=== PATIENT | male | born 1985 | race African-American/Black ===

== ENCOUNTER 2019-07-11 15:03 | Emergency (ER) | payer MEDICAID ==
[~2019-07-11] VITALS: Ht 172.7 cm; Wt 85.3 kg
[2019-07-11 15:08] VITALS: Ht 172.7 cm; Wt 85.3 kg
[2019-07-11 18:29] VITALS: BP 150/87
== END 2019-07-11 18:30 | disposition home or self-care (01) ==
LOC: ED 15:03
DX: S00.86XA Insect bite (nonvenomous) of other part of head, initial encounter (principal); S00.261A Insect bite (nonvenomous) of right eyelid and periocular area, initial encounter; L08.9 Local infection of the skin and subcutaneous tissue, unspecified; I10 Essential (primary) hypertension; W57.XXXA Bitten or stung by nonvenomous insect and other nonvenomous arthropods, initial encounter; Y93.89 Activity, other specified; Y92.89 Other specified places as the place of occurrence of the external cause; Y99.8 Other external cause status

== ENCOUNTER 2019-09-29 02:27 | Emergency (ER) | payer OTHER, MEDICAID ==
[~2019-09-29] VITALS: Ht 172.7 cm; Wt 83.9 kg
[2019-09-29 02:37] VITALS: Ht 172.7 cm; Wt 83.9 kg
[2019-09-29 05:00] VITALS: BP 160/110
== END 2019-09-29 05:05 | disposition home or self-care (01) ==
LOC: ED 02:27
DX: S13.4XXA Sprain of ligaments of cervical spine, initial encounter (principal); S29.012A Strain of muscle and tendon of back wall of thorax, initial encounter; S80.01XA Contusion of right knee, initial encounter; I10 Essential (primary) hypertension; V49.9XXA Car occupant (driver) (passenger) injured in unspecified traffic accident, initial encounter; Y93.89 Activity, other specified; Y92.89 Other specified places as the place of occurrence of the external cause; Y99.8 Other external cause status
CPT/HCPCS: Q0092

== ENCOUNTER 2019-10-03 01:31 | Emergency (ER) | payer OTHER, MEDICAID ==
[~2019-10-03] VITALS: Ht 172.7 cm; Wt 84.4 kg
[2019-10-03 01:34] VITALS: Ht 172.7 cm; Wt 84.4 kg
[2019-10-03 03:31] VITALS: BP 121/79
== END 2019-10-03 03:31 | disposition home or self-care (01) ==
LOC: ED 01:31
DX: S16.1XXA Strain of muscle, fascia and tendon at neck level, initial encounter (principal); S23.3XXA Sprain of ligaments of thoracic spine, initial encounter; I10 Essential (primary) hypertension; V43.52XA Car driver injured in collision with other type car in traffic accident, initial encounter; Y93.I9 Activity, other involving external motion; Y92.488 Other paved roadways as the place of occurrence of the external cause; Y99.8 Other external cause status
CPT/HCPCS: 20552; J2001

== ENCOUNTER 2019-10-14 10:32 | Emergency (ER) | payer OTHER, MEDICAID ==
[~2019-10-14] VITALS: Ht 172.7 cm; Wt 83.9 kg
[2019-10-14 10:37] VITALS: Ht 172.7 cm; Wt 83.9 kg
[2019-10-14 13:00] VITALS: BP 150/98
== END 2019-10-14 13:00 | disposition home or self-care (01) ==
LOC: ED 10:32
DX: S13.9XXA Sprain of joints and ligaments of unspecified parts of neck, initial encounter (principal); Z76.0 Encounter for issue of repeat prescription; V89.2XXA Person injured in unspecified motor-vehicle accident, traffic, initial encounter; Y93.89 Activity, other specified; Y99.8 Other external cause status; Y92.413 State road as the place of occurrence of the external cause